=== PATIENT | male | born 1975 | race Two or more races ===

== ENCOUNTER 2021-05-17 21:55 | Emergency (ER) | payer MEDICAID ==
[~2021-05-17] VITALS: Ht 175.3 cm; Wt 108.9 kg
[2021-05-17 22:50] VITALS: BP 127/87
[2021-05-17] MEDS ORDERED: IPRATROPIUM BROM 0.5 MG/2.5ML INH SOL NEB ONE (23:00)
[2021-05-17] MEDS ORDERED: ALBUTEROL SULF 2.5 MG/0.5ML(0.5%) NEB SOLN NEB ONE (23:00)
== END 2021-05-18 02:19 | disposition left against medical advice (07) ==
LOC: ER 22:06
DX: J45.909 Unspecified asthma, uncomplicated (principal); Z76.0 Encounter for issue of repeat prescription; Z53.21 Procedure and treatment not carried out due to patient leaving prior to being seen by health care provider
CPT/HCPCS: 94640; J7644